=== PATIENT | male | born 1990 | race Caucasian/White ===

== ENCOUNTER 2019-08-19 11:19 | Emergency (ER) | payer OTHER ==
[~2019-08-19] VITALS: Ht 170.2 cm; Wt 81.6 kg
[2019-08-19] MEDS ORDERED: ZYPREXA2.5 MG (11:57)
[2019-08-19] MEDS ORDERED: ATIVAN0.5 M1 (11:57)
[2019-08-19] MEDS ORDERED: DEPAKOTE ER250 MG (11:57)
[2019-08-19] MEDS ORDERED: BENADRYL25 MG (11:58)
== END 2019-08-19 16:35 | disposition home or self-care (01) ==
LOC: ER 11:19
DX: B34.9 Viral infection, unspecified (principal)

== ENCOUNTER 2021-02-17 13:18 | Emergency (ER) | payer OTHER ==
[~2021-02-17] VITALS: Ht 170.2 cm; Wt 81.6 kg
[~2021-02-17 13:18] MED LIST: ATIVAN0.5 M1; BENADRYL25 MG; DEPAKOTE ER250 MG; ZYPREXA2.5 MG
[2021-02-17] MEDS ORDERED: ONDANSETRON ODT4 MG PO (19:41)
[2021-02-17] MEDS ORDERED: PEPCID AC20 MG PO (19:41)
== END 2021-02-17 19:51 ==
LOC: ER 13:18
DX: K52.89 Other specified noninfective gastroenteritis and colitis (principal); Z20.822 Contact with and (suspected) exposure to COVID-19